=== PATIENT | male | born 1965 | race Caucasian/White ===

== ENCOUNTER → 2017-08-06 | Outpatient (CLI) | payer OTHER | END | disposition home or self-care (01) | LOC: MRI 15:01 | DX: M51.36 Other intervertebral disc degeneration, lumbar region (principal); R60.9 Edema, unspecified; M51.26 Other intervertebral disc displacement, lumbar region; M25.78 Osteophyte, vertebrae; M54.16 Radiculopathy, lumbar region | CPT/HCPCS: 72148 ==

== ENCOUNTER → 2017-08-18 | Outpatient (CLI) | payer OTHER | END | disposition home or self-care (01) | LOC: PNCL 08:16 | DX: M79.604 Pain in right leg (principal); M54.10 Radiculopathy, site unspecified; E78.00 Pure hypercholesterolemia, unspecified; R53.83 Other fatigue; R20.0 Anesthesia of skin | CPT/HCPCS: 99214 ==

== ENCOUNTER → 2017-09-01 | Outpatient (CLI) | payer OTHER ==
[~2017-09-01] MED LIST: IOHEXOL 180 MG/ML 10 ML VIAL.; methylPREDNISolone ACETATE 40 MG/ML VIAL.; methylPREDNISolone ACETATE 80 MG/ML VIAL.
== END | disposition home or self-care (01) ==
LOC: PNCL 08:12
DX: M51.16 Intervertebral disc disorders with radiculopathy, lumbar region (principal)
CPT/HCPCS: 62323; J1030; J1040; Q9965

== ENCOUNTER → 2018-05-10 | Outpatient (CLI) | payer OTHER ==
[~2018-05-10] MED LIST changes: +ASPI-482 PO; +CRESTOR20 MG PO; -IOHEXOL 180 MG/ML 10 ML VIAL.; -methylPREDNISolone ACETATE 40 MG/ML VIAL.; -methylPREDNISolone ACETATE 80 MG/ML VIAL.
--- NOTE | 2018-05-10 21:17 | PAIN ---
DATE OF SERVICE: 05/10/2018 PROGRESS NOTE FOR PAIN CLINIC DIAGNOSES: Lumbar radiculopathy with lumbar degenerative disk disease and lumbar herniated disk. HISTORY OF PRESENT ILLNESS: The patient is a 53-year-old male who returns for followup status post lumbar epidural steroid injection x 1, which was on 09/01/2017. The patient reports he had near 100% improvement for about 6 months after the injection, the pain has been returning now over the past 3-4 weeks in his low back and in his right leg. The patient reports no new motor or sensory deficits and no new bowel or bladder incontinence or other complaints. The patient reports the pain is a 6 on a scale 10 at its worst, 3 on average, 3 at its least and is a 3 today. The patient reports it is worse with walking, standing, change in positions, increasing, radiating from the low back into the posterior gluteus on the right, right lateral posterior thigh, posterior calf to the level of the ankle, tingling, radiating tight and shooting, sometimes worse with sitting as well. The patient reports generally it does not awaken him from sleep at night, better with sitting or lying down but prolonged sitting will increase it. The patient reports no loss of motor function. No bowel or bladder incontinence or other complaints. Also, no loss of motor function but significant fatigability with right leg with walking more than about 20 minutes. PHYSICAL EXAMINATION: VITAL SIGNS: The patient's blood pressure 125/85, pulse 79, respirations 16, temperature 98.0 degrees Fahrenheit, height is 5 feet 10 inches and weight is 183 pounds. GENERAL: The patient is awake, alert, oriented, appropriate and very pleasant demeanor. HEENT: Head shows normocephalic and atraumatic. Extraocular movements are intact and symmetrical. Oral cavity: Mucous membranes moist and pink. Dentition is intact. NECK: Shows anterior throat supple without palpable lymphadenopathy noted. Swallow reflex symmetrical. CHEST: Shows normal with inspection. Breath sounds clear to auscultation bilaterally. HEART: Shows S1 and S2 clear. No murmurs auscultated. ABDOMEN: Soft, nontender and nondistended. No palpable organomegaly is noted. No rebound or guarding demonstrated. BACK: Shows spine grossly in the midline. Normal appearing thoracic kyphosis and lumbar lordotic curvature. Lumbar paraspinous muscle shows symmetrical on inspection and palpation shows some moderate tenderness but only diffusely bilaterally in the low lumbar distribution without radiation. The patient has good rotational motion both laterally as well as extension and flexion of the lumbar spine. No tenderness over the sacrum or sacroiliac regions. EXTREMITIES: Lower extremities show deep tendon reflexes 2+ in the patellar, 1+ in tendo-calcaneus tendons. Motor exam is approximately 4 on a scale of 5 with right dorsiflexion, extension, 5/5 on the left. Quadriceps and hamstring flexion are 5/5 and equal. Peripheral pulses are 1+ posterior tibia. No peripheral edema is noted bilaterally. Straight leg raise noted to be slightly positive on the right at about 45 degrees, decreased with knee flexion, left side is negative. Gaenslen's and Jas's maneuvers are negative bilaterally. Options were discussed with the patient. The patient's old chart was reviewed as well as his current medication regimen updated. Current review of systems updated today as well and we will preauthorize the patient for a second lumbar epidural steroid injection as he is having increase return now of radicular pain in the L5-S1 dermatomal distribution on the right side with some mild fatigability and weakness in the right leg with activity. The patient did very well after the initial injection with approximately 100% improvement for 6 months, now returning not to baseline but significantly increasing radicular qualities of the pain in the right leg. The patient will maintain with stretching and strengthening exercises in the meantime that he has been doing these for the past few months as well. Also, encouraged him to increase activity as tolerated with walking daily activities to strengthen the legs and low back. The patient will maintain his activity level and stretching and strengthening exercises on his own. We will have him return to clinic in approximately 2 weeks and plan on lumbar epidural steroid injection #2 at that time. The patient will continue with ibuprofen on a p.r.n. basis as this helps the pain to decrease as well. WESLY GRAVES MD DR: MAAME/nehemias JOB#: [id number] / [id number]
== END | disposition home or self-care (01) ==
LOC: PNCL 10:31
PROVIDERS: ATTEND Anesthesiology
DX: M51.16 Intervertebral disc disorders with radiculopathy, lumbar region (principal)
CPT/HCPCS: 99212

== ENCOUNTER → 2018-05-27 | Outpatient (CLI) | payer OTHER ==
[~2018-05-27] MED LIST changes: +IOHEXOL 180 MG/ML 10 ML VIAL. ONE; +LIDOCAINE 1% PF 2 ML VIAL. ONE; +methylPREDNISolone ACETATE 40 MG/ML VIAL. ONE; +methylPREDNISolone ACETATE 80 MG/ML VIAL. ONE
--- NOTE | 2018-05-28 03:16 | PAIN ---
DATE OF SERVICE: 05/27/2018 PROGRESS NOTE FOR PAIN CLINIC DIAGNOSES: Lumbar radiculopathy with lumbar degenerative disk disease and lumbar herniated disk. HISTORY OF PRESENT ILLNESS: The patient is a 53-year-old male who returns for followup status post lumbar epidural steroid injection x 1. The patient did very well. We are awaiting for preauthorization for his next injection. He has obtained that now and would like to proceed. The patient reports still pain in the low back, right lower extremity, mostly in the posterior gluteus, posterior thigh, posterior knee, posterior calf on the right side with tingling and stabbing pain, tight and shooting in quality, aching in the low back; worse with standing, walking, changing positions; better with sitting or lying down; does not awaken him from sleep at night. The patient reports near 100% improvement after the first injection for several weeks, but the pain is returning now as noted. The patient reports the pain is 6 on a scale of 10 at its worst, 4 on average, 3 at its least and is a 4 today. The patient reports no new motor or sensory deficits and no new bowel or bladder incontinence or other complaints. He is originally increasing his household activities and increasing his distance walking, able to do work duties as well as recreational duties and traveling much better ease and comfort but again pain returning now. PHYSICAL EXAMINATION: VITAL SIGNS: The patient's blood pressure 124/88, pulse 73, respirations 16 and temperature 97.7 degrees Fahrenheit. Weight is 186 pounds. GENERAL: The patient is awake, alert, oriented, appropriate and very pleasant demeanor. HEENT: Head shows normocephalic and atraumatic. Extraocular movements are intact and symmetrical. Oral cavity: Mucous membranes moist and pink. Dentition is intact. NECK: Shows anterior throat supple without palpable lymphadenopathy noted. Swallow reflex symmetrical. CHEST: Shows normal on inspection. Breath sounds clear to auscultation bilaterally. HEART: Shows S1 and S2 clear. No murmurs auscultated. ABDOMEN: Soft, nontender and nondistended. No palpable organomegaly is noted. No rebound or guarding demonstrated. BACK: Shows spine grossly in the midline. Normal-appearing thoracic kyphosis and lumbar lordotic curvature. The patient's lumbar paraspinous musculature shows symmetrical on inspection. On palpation shows some moderate tenderness diffusely but only diffusely bilaterally without radiation. EXTREMITIES: The patient's lower extremities show deep tendon reflexes at 2+ in the patellar and tendo-calcaneus tendons are 1+. Motor exam is strong approximately 4 on a scale of 5 with dorsiflexion, extension on the right and 5/5 on the left. Peripheral pulses are 1+ posterior tibial. No peripheral edema is noted bilaterally. Options were discussed with the patient. The patient's old chart was reviewed as well as his current medication regimen updated. Current review of systems updated today as well. We will proceed with a second in the series of lumbar epidural steroid injection today with fluoroscopic guidance. Risks were again discussed including, but not limited to bleeding, infection, possibility of epidural hematoma and subsequent neurological compromise, dural puncture, headaches, spinal cord and/or nerve damage, side effects of steroid medication and poor results regarding pain control. The patient understands and wished to proceed. The patient will return to the clinic in approximately 2 weeks for followup, was counseled as to return appointment, activity level and side effects to be aware of. DIAGNOSES: Lumbar radiculopathy with lumbar degenerative disk disease and lumbar herniated disk. PROCEDURE: Lumbar epidural steroid injection, translaminar approach, L5-S1 level using C-arm fluoroscopic guidance under sterile prep and drape using local anesthetic. MEDICATION INJECTED: A total of 120 mg Depo-Medrol plus 10 mL of preservative-free normal saline and 2 mL of Isovue for contrast. CONDITION AT DISCHARGE: Stable. The patient tolerated the procedure well and had no complications. WESLY GRAVES MD DR: MAAME/nehemias JOB#: [id number] / [id number]
== END | disposition home or self-care (01) ==
LOC: PNCL 14:34
PROVIDERS: ATTEND Anesthesiology
DX: M51.16 Intervertebral disc disorders with radiculopathy, lumbar region (principal)
CPT/HCPCS: 62323; J1030; J1040; Q9965

== ENCOUNTER → 2018-06-10 | Outpatient (CLI) | payer OTHER ==
[~2018-06-10] MED LIST changes: -IOHEXOL 180 MG/ML 10 ML VIAL. ONE; -LIDOCAINE 1% PF 2 ML VIAL. ONE; -methylPREDNISolone ACETATE 40 MG/ML VIAL. ONE; -methylPREDNISolone ACETATE 80 MG/ML VIAL. ONE
--- NOTE | 2018-06-10 20:48 | PAIN ---
DATE OF SERVICE: 06/10/2018 PROGRESS NOTE FOR PAIN CLINIC DIAGNOSES: Lumbar radiculopathy with lumbar degenerative disk disease and lumbar herniated disk. HISTORY OF PRESENT ILLNESS: The patient is a 53-year-old male who returns for followup status post lumbar epidural steroid injection x 1, this series. The patient reports about 90% improvement, doing much better, still with good improvement to this day with very minimal pain and only in the low back at this time now without significant radiation to the right lower extremity as it was previously. The patient reports pain is a 1 on scale of 10 at its absolute worst, 0 on average, 0 at its least and is a 0 today. The patient reports it is aching and tight across the back at times when he bends down or stretches to his left side. He can feel it other times but usually does not bother him at all. He has been increasing his activity, generally feeling better, returning to work activities, walking distances greater, doing household activities, traveling, in and out of the car without problems or symptoms. The patient reports he is sleeping well at night, does not bother him when he is asleep. He usually noticed it when he is on his feet or sitting for too long. Otherwise, doing very well. The patient reports no new motor or sensory deficits and no new bowel or bladder incontinence or other complaints. PHYSICAL EXAMINATION: VITAL SIGNS: Today, the patient's blood pressure is 121/83, pulse 72, respirations are 18 and temperature 98.3 degrees Fahrenheit. Height is 5 feet 10 inches and weight is 189 pounds. GENERAL: The patient is awake, alert, oriented, appropriate and very pleasant demeanor. HEENT: Head shows normocephalic and atraumatic. Extraocular movements are intact and symmetrical. Oral cavity: Mucous membranes are moist and pink. Dentition is intact. NECK: Shows anterior throat supple without palpable lymphadenopathy noted. Swallow reflex symmetrical. CHEST: Shows normal on inspection. Breath sounds clear to auscultation bilaterally. HEART: Shows S1 and S2 clear. No murmurs auscultated. ABDOMEN: Soft, nontender and nondistended. No palpable organomegaly is noted. No rebound or guarding demonstrated. BACK: Shows spine grossly in the midline. Normal appearing thoracic kyphosis and lumbar lordotic curvature. Lumbar paraspinous muscle shows symmetrical on inspection, on palpation shows some moderate tenderness but only diffusely in the low lumbar distribution. Good rotational motion is maintained both laterally as well as extension and flexion without difficulty. EXTREMITIES: Lower extremities show deep tendon reflexes 2+ in the patellar, 1+ tendo-calcaneus tendons. Motor exam is approximately 4 on a scale of 5 on the right and 5/5 on the left. Peripheral pulses are 1+ posterior tibial. No peripheral edema is noted. Options were discussed with the patient. The patient's old chart was reviewed as well as his current medication regimen updated. Current review of systems updated today as well. We will hold on further injections at this time as he is doing quite well. The patient was encouraged to increase his activity gradually and as tolerated and keep doing stretching and strengthening exercises and return to clinic at this time on as needed basis. WESLY GRAVES MD DR: MAAME/nehemias JOB#: [id number] / [id number]
== END | disposition home or self-care (01) ==
LOC: PNCL 13:37
PROVIDERS: ATTEND Anesthesiology
DX: M51.16 Intervertebral disc disorders with radiculopathy, lumbar region (principal)
CPT/HCPCS: 99212